=== PATIENT | male | born 1965 | race Caucasian/White ===

== ENCOUNTER 2019-05-10 01:31 | Emergency (ER) | payer OTHER ==
[~2019-05-10] VITALS: Ht 180.3 cm; Wt 109.8 kg
[2019-05-10] MEDS ORDERED: LISI20 (03:31)
[2019-05-10] MEDS ORDERED: METF500 PO (03:32)
[2019-05-10] MEDS ORDERED: PRAV20 (03:33)
[2019-05-10] MEDS ORDERED: ONDA4ODT MM (04:44)
== END 2019-05-10 04:55 | disposition home or self-care (01) ==
LOC: ER 01:31
DX: R51 Headache (principal); Z79.899 Other long term (current) drug therapy; Z79.84 Long term (current) use of oral hypoglycemic drugs; I10 Essential (primary) hypertension; E11.9 Type 2 diabetes mellitus without complications
CPT/HCPCS: 36415; 96361; 96372-59; 96374; 96375; 99283-25; J1200; J1885; J2405; J3030; J7030

== ENCOUNTER → 2019-08-18 | Outpatient (CLI) | payer OTHER ==
[~2019-08-18] MED LIST: LISI20; METF500 PO; ONDA4ODT MM; PRAV20
== END | disposition home or self-care (01) ==
LOC: LAB 14:24 → LAB SHORT 14:24
DX: L08.9 Local infection of the skin and subcutaneous tissue, unspecified (principal)
CPT/HCPCS: 87070; 87205

== ENCOUNTER 2023-10-04 12:43 | Emergency (ER) | payer OTHER ==
[~2023-10-04] VITALS: Ht 180.3 cm; Wt 111.1 kg
[2023-10-04 13:32] VITALS: BP 165/74
[2023-10-04] MEDS ORDERED: CEPH500 PO (15:43)
== END 2023-10-04 16:09 | disposition home or self-care (01) ==
LOC: ER 12:43
DX: T25.231A Burn of second degree of right toe(s) (nail), initial encounter (principal); I10 Essential (primary) hypertension; E11.9 Type 2 diabetes mellitus without complications; X19.XXXA Contact with other heat and hot substances, initial encounter; Z79.84 Long term (current) use of oral hypoglycemic drugs; Z79.899 Other long term (current) drug therapy
CPT/HCPCS: 73630; 99283-25

== ENCOUNTER 2023-11-03 05:36 | Day surgery (SDC) | payer OTHER ==
[~2023-11-03 05:36] MED LIST changes: +CEPH500 PO
[2023-11-03] MEDS ORDERED: Silver Sulfadiazine 1% Cream 25 APPLIC/25 GM Tube ONE (12:47)
[2023-11-03] MEDS ORDERED: Lidocaine HCl 4% Cream 5 GM ONE (12:47)
== END 2023-11-03 22:56 | disposition home or self-care (01) ==
LOC: WOUND 05:36
DX: T25.3 Burn of third degree of ankle and foot (principal); E11.40 Type 2 diabetes mellitus with diabetic neuropathy, unspecified; E11.628 Type 2 diabetes mellitus with other skin complications; I10 Essential (primary) hypertension; X08.8XXS Exposure to other specified smoke, fire and flames, sequela
CPT/HCPCS: 73630; A9270; G0463

== ENCOUNTER 2025-05-09 06:17 | Day surgery (SDC) | payer OTHER ==
[~2025-05-09] VITALS: Ht 180.3 cm; Wt 104.6 kg
[~2025-05-09 06:17] MED LIST changes: +AMOX-CLAV 500-1 EAC5 PO; +Actos30 MG PO
[2025-05-09] MEDS ORDERED: Clindamycin 900mg in D5W 50ML 50 ML IV ONE (06:27)
[2025-05-09] MEDS ORDERED: Lidocaine 1%-Epineph 1:200000 30 ML SDV ONE (06:57)
[2025-05-09] MEDS ORDERED: FARXIGA10 MG PO (07:01)
[2025-05-09] MEDS ORDERED: LIRAGLUTID0.6 MG/0.1 SC (07:03)
--- NOTE | 2025-05-09 07:08 | NUR ---
05/09/[address] NOTIFIED OF LARIGLUTIDE INJECTION PT GAVE HIMSELF 05/08/25.
[2025-05-09] MEDS ORDERED: FentaNYL Citrate 50 MCG/ML 2 ML Injection ONE (07:44)
[2025-05-09] MEDS ORDERED: Midazolam HCl 1MG / ML 2ML Vial ONE (07:44)
[2025-05-09] MEDS ORDERED: SuccINYLCHOLINE Chloride 100 MG/5 ML 5MLSYR ONE (07:46)
[2025-05-09] MEDS ORDERED: Ondansetron HCl 2 MG / ML 2ML Vial ONE (07:46)
[2025-05-09] MEDS ORDERED: Dexamethasone Sod Phos 10 MG/ML 1ML VIAL ONE (07:46)
[2025-05-09] MEDS ORDERED: Bupivacaine HCl 0.25% 50 ML Vial (NON CHARGE) INJ ONE (08:02)
--- NOTE | 2025-05-09 08:35 | NUR ---
05/09/25 0835 Marleni Jennings PT TO PACU FROM OR, NO AIRWAY PRESENT. VSS. PT COOPERATING AND ORIENTED SHORTLY AFTER HANDOFF POST-OP SITE: RIGHT LATERAL TONGUE: RED/PINK, VISIBLE CHUNK MISSING, NO S/S ACTIVE BLEEDING. PT DENIES PAIN. GLASSES ON STRETCHER
[2025-05-09 09:12] VITALS: BP 137/73
--- NOTE | 2025-05-09 09:27 | NUR ---
05/09/25 0927 Marleni Jennings BASELINE SCATTERED SCABBING
== END 2025-05-09 09:22 | disposition home or self-care (01) ==
LOC: ORSCSDS 06:17
PROVIDERS: Otolaryngology
PROC: 0CB7XZX Excision of Tongue, External Approach, Diagnostic (ICD-10-PCS; principal; 2025-05-09 07:30)
DX: D00.07 Carcinoma in situ of tongue (principal); E78.5 Hyperlipidemia, unspecified; E11.9 Type 2 diabetes mellitus without complications; E66.9 Obesity, unspecified; Z68.32 Body mass index [BMI] 32.0-32.9, adult; Z79.84 Long term (current) use of oral hypoglycemic drugs; Z79.899 Other long term (current) drug therapy
CPT/HCPCS: 82947; 88305; J0330; J1100; J2250; J2405; J2704; J3010; J7120